=== PATIENT | male | born 1990 | race African-American/Black ===

== ENCOUNTER 2022-12-01 15:38 | Emergency (ER) | payer MEDICAID ==
[~2022-12-01] VITALS: Ht 177.8 cm; Wt 79.0 kg
[2022-12-01 15:50] VITALS: BP 97/72; O2SAT 98
[2022-12-01] MEDS ORDERED: BALANCED SALT IRRIG SOLN 15ML IR ONE (16:45)
[2022-12-01] MEDS ORDERED: FLUORESCEIN SODIUM 1MG/STRIP LEFTEYE ONE (16:45)
[2022-12-01] MEDS ORDERED: TETRACAINE 0.5% OPHTH DROPS 4ML LEFTEYE ONE (16:45)
[2022-12-01 18:05] LABS: BASOPHILS % 0.7 % (0.0-2.0); EOSINOPHILS % 0.4 % (0.0-5.0); HEMATOCRIT. 45.4 % (42.0-52.0); HEMOGLOBIN. 15.4 g/dL (14.0-18.0); LYMPHOCYTES % 33.9 % (20.0-50.0); MEAN CORPUSCULAR HEMOGLOBIN 31.8 pg (28.0-32.0); MEAN CORPUSCULAR VOLUME 93.5 fL (80.0-94.0); MEAN PLATELET VOLUME 8.4 fl (7.4-10.4); MONOCYTES % 14.8 % (2.0-8.0); NEUTROPHILS % 50.2 % (40.0-76.0); PLATELET 148 x1000/uL (130-400); RED BLOOD CELL COUNT 4.86 mill/uL (4.7-6.1); RED CELL DISTRIBUTION WIDTH 13.1 % (11.6-14.6); WHITE BLOOD COUNT 5.3 x1000/uL (4.5-11.0)
[2022-12-01 18:38] LABS: CHLORIDE 107 mEq/L (98-107); INDEX HEMOLYSI 1 (1-3); INDEX ICTERIC 1 (1-4); INDEX LIPEMIC 1 (1-3); POTASSIUM 4.7 mEq/L (3.5-5.1); SODIUM 138 mEq/L (136-145)
[2022-12-01 18:47] LABS: ALANINE AMINOTRANSFERASE 23 IU/L (13-61); ALBUMIN 3.9 g/dL (3.4-5.0); ASPARTATE AMINOTRANSFERASE 29 IU/L (15-37); BILIRUBIN TOTAL 1.2 mg/dL (0.1-1.0); CALCIUM 8.6 mg/dL (8.5-10.1); CARBON DIOXIDE 28 mEq/L (21-32); CREATININE 1.1 mg/dL (0.6-1.3); GLUCOSE 92 mg/dL (70-105); PROTEIN TOTAL 7.5 g/dL (6.0-8.3); UREA NITROGEN BLOOD 15 mg/dL (7-21)
[2022-12-01 19:43] LABS: CLARITY URINE CLEAR (CLEAR); COLOR URINE DARK YELLOW (YELLOW); GLUCOSE URINE NEGATIVE (NEGATIVE); KETONES URINE TRACE (NEGATIVE); LEUKOCYTE ESTERASE URINE NEGATIVE (NEGATIVE); NITRITE URINE NEGATIVE (NEGATIVE); OCCULT BLOOD URINE NEGATIVE (NEGATIVE); PH URINE 5.5 (4.5-8.0); PROTEIN URINE 1+ (NEGATIVE); SPECIFIC GRAVITY URINE 1.034 (1.005-1.030)
[2022-12-01 19:46] LABS: BACTERIA URINE NONE SEEN; RBC URINE 0-2 /hpf (0-2); SQUAMOUS EPITHELIAL CELL URINE NONE SEEN /lpf (RARE/1+); WBC URINE 0-2 /hpf (0-2); YEAST URINE NONE SEEN
[2022-12-01] MEDS ORDERED: CIPR5DRO LEFTEYE (21:16)
[2022-12-01 21:37] VITALS: PULSE 68; RESP 20; TEMP 98.8
== END 2022-12-01 21:39 | disposition home or self-care (01) ==
LOC: ER 15:38
DX: H11.32 Conjunctival hemorrhage, left eye (principal); R51.9 Headache, unspecified
CPT/HCPCS: 36415; 70480; 80053; 81003; 85025; 99284

== ENCOUNTER 2023-06-29 07:24 | Emergency (ER) | payer MEDICAID ==
[~2023-06-29] VITALS: Ht 172.7 cm; Wt 66.0 kg
[~2023-06-29 07:24] MED LIST: CIPR5DRO LEFTEYE
[2023-06-29 07:33] VITALS: BP 122/91; PULSE 95; RESP 18; TEMP 98.5; O2SAT 99
[2023-06-29] MEDS: IBUPROFEN 800MG TABLET PO ONE (08:15)
[2023-06-29] MEDS ORDERED: IBUP-2029 MT (08:15)
[2023-06-29] MEDS: IBUPROFEN 400MG TABLET PO SCH (08:27)
[2023-06-29] MEDS: ACETAMINOPHEN 500MG TABLET PO ONE (08:28)
== END 2023-06-29 10:04 | disposition home or self-care (01) ==
LOC: ER 07:24
DX: M54.9 Dorsalgia, unspecified (principal); M79.601 Pain in right arm; Z79.891 Long term (current) use of opiate analgesic
CPT/HCPCS: 99283

== ENCOUNTER 2024-02-25 15:16 | Emergency (ER) | payer MEDICAID ==
[~2024-02-25] VITALS: Ht 182.9 cm; Wt 73.0 kg
[~2024-02-25 15:16] MED LIST changes: +IBUP-2029 MT
[2024-02-25 15:18] VITALS: TEMP 98.1; O2SAT 99
[2024-02-25] MEDS ORDERED: IBUP-2029 MT (17:20)
[2024-02-25 17:30] VITALS: BP 127/58; PULSE 89; RESP 16
[2024-02-25] MEDS: IBUPROFEN 600MG TABLET PO ONE (17:30)
== END 2024-02-25 17:31 | disposition home or self-care (01) ==
LOC: ER 15:16
DX: S40.022A Contusion of left upper arm, initial encounter (principal); W23.0XXA Caught, crushed, jammed, or pinched between moving objects, initial encounter; Y93.89 Activity, other specified; Y92.811 Bus as the place of occurrence of the external cause; Y99.8 Other external cause status
CPT/HCPCS: 73030; 73080; 73110; 99284; Z7610 ×2